=== PATIENT | male | born 1990 | race Caucasian/White ===

== ENCOUNTER 2023-09-14 22:33 | Emergency (ER) | payer MEDICARE, OTHER ==
[~2023-09-14] VITALS: Ht 180.3 cm; Wt 63.5 kg
[2023-09-14 22:33] VITALS: BP 136/80; PULSE 94; RESP 18; TEMP 98.1; O2SAT 96
[2023-09-15] MEDS ORDERED: NACL 0.9% 1,000 ML IV ONE (02:05)
[2023-09-15 02:09] LABS: APPEARANCE,URINE CLEAR (CLEAR); BILIRUBIN,URINE NEGATIVE (NEGATIVE); BLOOD, URINE 3+ (NEGATIVE); COLOR,URINE YELLOW (YELLOW); LEUKOCYTE ESTERASE ,URINE TRACE (NEGATIVE); NITRITE, URINE POSITIVE (NEGATIVE); PH,URINE 7.5 (5.0-9.0); PROTEIN,URINE 3+ (NEGATIVE); UGLUCOSE NEGATIVE (NEGATIVE)
[2023-09-15 02:12] LABS: BACTERIA,URINE >30 (MANY) /HPF (None Seen); MUCUS,URINE 1+ /LPF (None Seen); RBC,URINE >20 (MANY) /HPF (0-5); SQUAMOUS EPITHELIAL CELL,UR 0-3 (FEW) /LPF (0-3 (FEW)); WBC,URINE 0-5 /HPF (0-5)
[2023-09-15] MEDS ORDERED: Z-GUARD PASTE TP ONE (02:24)
[2023-09-15 02:26] LABS: ALBUMIN 3.7 g/dL (3.4-5.0); ANION GAP 8.9 (8-16); CALCIUM 9.1 mg/dL (8.5-10.1); CARBON DIOXIDE 31.7 mmol/L (21-32); CREATININE 0.7 mg/dL (0.6-1.3); POTASSIUM 3.6 mmol/L (3.5-5.1); TOTAL BILIRUBIN 0.3 mg/dL (0.0-1.0); TOTAL PROTEIN, SERUM 8.5 g/dL (6.4-8.2)
[2023-09-15 02:35] LABS: BASOPHILS # (AUTO) 0.1 K/uL (0.00-0.22); BASOPHILS % (AUTO) 0.6 % (0.0-2.0); EOSINOPHILS # (AUTO) 0.1 K/uL (0-0.4); EOSINOPHILS % (AUTO) 0.7 % (0.0-4.0); HEMATOCRIT 43.4 % (36-52); HEMOGLOBIN 13.9 g/dL (12.0-18.0); LYMPHOCYTES # (AUTO) 1.5 K/uL (2.0-11.5); LYMPHOCYTES % (AUTO) 13.3 % (20.5-51.1); MEAN CORPUSCULAR HEMOGLOBIN 25 pg (27-31); MEAN CORPUSCULAR HGB CONC 32 g/dL (33-37); MEAN CORPUSCULAR VOLUME 78.1 fL (80-94); MONOCYTES # (AUTO) 0.9 K/uL (0.8-1.0); NEUTROPHILS % (AUTO) 77.4 % (42.2-75.2); PLATELET COUNT (AUTO) 382 K/uL (140-450); RED BLOOD CELL COUNT(AUTO) 5.56 MIL/uL (4.20-6.10); RED CELL DISTRIBUTION WIDTH 16.1 % (11.6-13.7); WHITE BLOOD COUNT (AUTO) 11.6 K/uL (4.8-10.8)
[2023-09-15] MEDS ORDERED: MORPHINE SULFATE 4 MG/ML SYR IVP ONE ×2 (03:15→08:50)
[2023-09-15] MEDS ORDERED: CIPR250S PO (04:23)
[2023-09-15] MEDS ORDERED: APIX5TAB PO (04:23)
[2023-09-15] MEDS ORDERED: OXYC5TAB4 PO (04:23)
[2023-09-15] MEDS ORDERED: CYCL-711 PO (04:23)
[2023-09-15] MEDS ORDERED: CEPH-588 PO (04:23)
[2023-09-15] MEDS ORDERED: LACT-58 PO (04:23)
[2023-09-15] MEDS ORDERED: LIDO4CRE18 TP (04:23)
[2023-09-15] MEDS ORDERED: AMIT10TA47 PO (04:23)
[2023-09-15] MEDS ORDERED: DIAZ-950 PO (04:23)
[2023-09-15] MEDS ORDERED: DULO30EC PO (04:23)
[2023-09-15] MEDS ORDERED: HYDR-1093 PO (04:23)
[2023-09-15] MEDS ORDERED: NALO4SPR3 NS (04:23)
[2023-09-15] MEDS ORDERED: ACET-503 PO (04:23)
[2023-09-15] MEDS ORDERED: HYDR-5018 PO (04:23)
[2023-09-15] MEDS ORDERED: ONDA-188 PO (04:23)
[2023-09-15] MEDS ORDERED: LEVO750T75 PO (04:23)
[2023-09-15] MEDS ORDERED: AMPH10CE PO (04:23)
[2023-09-15] MEDS ORDERED: LINA145C PO (04:23)
[2023-09-15 05:09] VITALS: TEMP 97.8
[2023-09-15] MEDS ORDERED: CIPR500T4 PO (06:04)
[2023-09-15 15:35] VITALS: BP 117/62; PULSE 107; RESP 16; O2SAT 94
== END 2023-09-15 15:35 | disposition short-term general hospital (02) ==
LOC: MED 22:33
DX: L89.329 Pressure ulcer of left buttock, unspecified stage (principal); N39.0 Urinary tract infection, site not specified; Z79.899 Other long term (current) drug therapy
CPT/HCPCS: 36415; 51701; 72170; 80053; 81001; 85025; 96361; 96374; 96376; 99285; J2270; J7030; 96375

== ENCOUNTER 2023-10-07 16:49 | Emergency (ER) | payer MEDICARE, OTHER ==
[~2023-10-07] VITALS: Ht 180.3 cm; Wt 63.5 kg
[~2023-10-07 16:49] MED LIST: ACET-503 PO; AMIT10TA47 PO; AMPH10CE PO; APIX5TAB PO; CEPH-588 PO; CIPR250S PO; CIPR500T4 PO; CYCL-711 PO; DIAZ-950 PO; DULO30EC PO; HYDR-1093 PO; HYDR-5018 PO; LACT-58 PO; LEVO750T75 PO; LIDO4CRE18 TP; LINA145C PO; NALO4SPR3 NS; ONDA-188 PO; OXYC5TAB4 PO
[2023-10-07 17:20] VITALS: BP 156/113; PULSE 120; RESP 20; TEMP 101.7; O2SAT 98
[2023-10-07 17:32] VITALS: BP 120/70; PULSE 84; RESP 20; TEMP 98.8; O2SAT 99
[2023-10-07 18:42] VITALS: O2SAT 99
[2023-10-07 18:55] VITALS: TEMP 98.4
[2023-10-07] MEDS ORDERED: MORPHINE SULFATE 4 MG/ML SYR IVP ONE ×2 (18:55→21:20)
[2023-10-07] MEDS ORDERED: CEFEPIME 1,000 MG in DEXTROSE 5% 50 ML IV ONE (18:55)
[2023-10-07 18:56] LABS: BASOPHILS % (AUTO) 0.5 % (0.0-2.0); EOSINOPHILS % (AUTO) 0.4 % (0.0-4.0); HEMATOCRIT 37.7 % (36-52); HEMOGLOBIN 12.6 g/dL (12.0-18.0); LYMPHOCYTES # (AUTO) 0.9 K/uL (2.0-11.5); LYMPHOCYTES % (AUTO) 8.7 % (20.5-51.1); MEAN CORPUSCULAR HEMOGLOBIN 26 pg (27-31); MEAN CORPUSCULAR HGB CONC 33 g/dL (33-37); MEAN CORPUSCULAR VOLUME 77.1 fL (80-94); MONOCYTES # (AUTO) 0.5 K/uL (0.8-1.0); NEUTROPHILS # (AUTO) 8.5 K/uL (1.8-7.7); NEUTROPHILS % (AUTO) 85.4 % (42.2-75.2); PLATELET COUNT (AUTO) 379 K/uL (140-450); RED BLOOD CELL COUNT(AUTO) 4.89 MIL/uL (4.20-6.10); RED CELL DISTRIBUTION WIDTH 15.5 % (11.6-13.7); WHITE BLOOD COUNT (AUTO) 9.9 K/uL (4.8-10.8)
[2023-10-07] MEDS ORDERED: CEFEPIME 1,000 MG VIAL ONE (19:01)
[2023-10-07 19:10] LABS: BILIRUBIN,URINE NEGATIVE (NEGATIVE); BLOOD, URINE 2+ (NEGATIVE); COLOR,URINE YELLOW (YELLOW); LEUKOCYTE ESTERASE ,URINE 2+ (NEGATIVE); NITRITE, URINE NEGATIVE (NEGATIVE); PROTEIN,URINE NEGATIVE (NEGATIVE); UGLUCOSE NEGATIVE (NEGATIVE); UROBILINOGEN,URINE 0.2 EU/dL (0.2 - 1)
[2023-10-07 19:13] LABS: ANION GAP 11.7 (8-16); CALCIUM 8.8 mg/dL (8.5-10.1); CARBON DIOXIDE 29.7 mmol/L (21-32); CREATININE 0.6 mg/dL (0.6-1.3); POTASSIUM 3.4 mmol/L (3.5-5.1)
[2023-10-07 19:17] LABS: APPEARANCE,URINE CLOUDY (CLEAR)
[2023-10-07 19:31] LABS: BACTERIA,URINE 3+ /HPF (None Seen); RBC,URINE 11-20 (MOD) /HPF (0-5); SQUAMOUS EPITHELIAL CELL,UR None Seen /LPF (0-3 (FEW)); WBC,URINE TOO MANY TO COUNT /HPF (0-5)
[2023-10-07] MEDS ORDERED: MORPHINE SULFATE 2 MG/ML SYR ONE (22:46)
[2023-10-08 00:02] VITALS: BP 123/84; PULSE 78; RESP 20; O2SAT 100
== END 2023-10-08 00:34 | disposition short-term general hospital (02) ==
LOC: MED 16:49
DX: S71.132A Puncture wound without foreign body, left thigh, initial encounter (principal); S31.030A Puncture wound without foreign body of lower back and pelvis without penetration into retroperitoneum, initial encounter; N39.0 Urinary tract infection, site not specified; W34.09XA Accidental discharge from other specified firearms, initial encounter; Y93.89 Activity, other specified; Y92.89 Other specified places as the place of occurrence of the external cause; Y99.8 Other external cause status
CPT/HCPCS: 36415; 80048; 81001; 83605; 85025; 87086; 96374; 96375; 96376; 99285; J0692; J2270

== ENCOUNTER 2024-08-01 23:35 | Emergency (ER) | payer MEDICARE, MEDICAID ==
[~2024-08-01] VITALS: Ht 180.3 cm; Wt 65.8 kg
[~2024-08-01 23:35] MED LIST changes: -NALO4SPR3 NS; +NALO4SPR5 NS
[2024-08-01 23:39] VITALS: BP 117/73; PULSE 89; RESP 16; TEMP 98.2; O2SAT 97
[2024-08-01 23:50] VITALS: O2SAT 97
[2024-08-02 00:50] LABS: BASOPHILS # (AUTO) 0.2 K/uL (0.00-0.22); BASOPHILS % (AUTO) 1.9 % (0.0-2.0); EOSINOPHILS # (AUTO) 0.1 K/uL (0-0.4); EOSINOPHILS % (AUTO) 0.9 % (0.0-4.0); HEMATOCRIT 39.7 % (36-52); LYMPHOCYTES % (AUTO) 11.5 % (20.5-51.1); MEAN CORPUSCULAR HEMOGLOBIN 25 pg (27-31); MEAN CORPUSCULAR HGB CONC 33 g/dL (33-37); MEAN CORPUSCULAR VOLUME 75.7 fL (80-94); MONOCYTES # (AUTO) 0.6 K/uL (0.8-1.0); MONOCYTES % (AUTO) 6.3 % (1.7-9.3); NEUTROPHILS # (AUTO) 7.2 K/uL (1.8-7.7); NEUTROPHILS % (AUTO) 79.4 % (42.2-75.2); PLATELET COUNT (AUTO) 315 K/uL (140-450); RED BLOOD CELL COUNT(AUTO) 5.24 MIL/uL (4.20-6.10); RED CELL DISTRIBUTION WIDTH 15.6 % (11.6-13.7); WHITE BLOOD COUNT (AUTO) 9.1 K/uL (4.8-10.8)
[2024-08-02 00:58] LABS: ANION GAP 11.7 (8-16); CALCIUM 9.2 mg/dL (8.5-10.1); CARBON DIOXIDE 28.9 mmol/L (21-32); CREATININE 0.7 mg/dL (0.6-1.3); POTASSIUM 4.6 mmol/L (3.5-5.1)
[2024-08-02] MEDS: ONDANSETRON 4 MG/2 ML VIAL IVP ONE (01:01)
[2024-08-02] MEDS: MORPHINE SULFATE 4 MG/ML SYR IVP ONE ×2 (01:02→06:18)
[2024-08-02] MEDS: NACL 0.9% 1,000 ML IV ONE ×2 (02:02→03:01)
[2024-08-02 02:45] VITALS: O2SAT 97
[2024-08-02] MEDS: KETOROLAC 30 MG/ML VIAL IVP ONE (03:08)
[2024-08-02 04:36] LABS: APPEARANCE,URINE CLEAR (CLEAR); BILIRUBIN,URINE NEGATIVE (NEGATIVE); BLOOD, URINE 1+ (NEGATIVE); COLOR,URINE YELLOW (YELLOW); LEUKOCYTE ESTERASE ,URINE 2+ (NEGATIVE); NITRITE, URINE NEGATIVE (NEGATIVE); PROTEIN,URINE NEGATIVE (NEGATIVE); UGLUCOSE NEGATIVE (NEGATIVE); UROBILINOGEN,URINE 0.2 EU/dL (0.2 - 1)
[2024-08-02 04:49] LABS: BACTERIA,URINE 10-30 (MOD) /HPF (None Seen); MUCUS,URINE 1+ /LPF (None Seen); SQUAMOUS EPITHELIAL CELL,UR 0-3 (FEW) /LPF (0-3 (FEW))
[2024-08-02] MEDS ORDERED: GABA400C PO (05:08)
[2024-08-02] MEDS ORDERED: BACL10TA4 PO (05:08)
[2024-08-02] MEDS ORDERED: TIZA2CAP PO (05:08)
[2024-08-02 05:26] VITALS: O2SAT 97
[2024-08-02] MEDS ORDERED: GENTAMICIN 80 MG/2 ML VIAL ONE (05:40)
[2024-08-02] MEDS: GENTAMICIN 360 MG in DEXTROSE 5% 100 ML IV ONE (05:48)
[2024-08-02 08:19] VITALS: BP 95/49; PULSE 66; RESP 16; TEMP 98.2; O2SAT 97
== END 2024-08-02 08:19 | disposition short-term general hospital (02) ==
LOC: MED 23:35
DX: N39.0 Urinary tract infection, site not specified (principal); L98.419 Non-pressure chronic ulcer of buttock with unspecified severity; G82.20 Paraplegia, unspecified; Z79.899 Other long term (current) drug therapy; Z79.01 Long term (current) use of anticoagulants; Z86.73 Personal history of transient ischemic attack (TIA), and cerebral infarction without residual deficits
CPT/HCPCS: 36415; 80048; 81001; 83605; 85025; 87040; 87086; 87186; 96361; 96365; 96375; 96376; 99285; J1580; J1885; J2270; J2405; J7030